=== PATIENT | female | born 1965 | race American Indian/Alaskan Native ===

== ENCOUNTER 2025-07-09 17:22 | Observation (INO) ==
[2025-07-09] MEDS ORDERED: IOPAMIDOL 100 ML BOTTLE IV ONE (17:23)
[2025-07-09 18:13] LABS: Basophils # (Auto) 0.02 K/mcL (0.00-0.30); Basophils % (Auto) 0.3 % (0.0-2.0); Eosinophils # (Auto) 0.05 K/mcL (0.00-0.70); Eosinophils % (Auto) 0.8 % (0.0-7.0); Hematocrit 44.5 % (34.1-44.9); Hemoglobin 14.8 g/dL (11.2-15.7); Lymphocytes # (Auto) 2.75 K/mcL (1.50-4.80); Lymphocytes % (Auto) 44.1 % (15.5-49.0); Mean Corpuscular HGB Conc 33.3 g/dL (31.0-36.0); Monocytes # (Auto) 0.46 K/mcL (0.10-0.90); Monocytes % (Auto) 7.4 % (1.0-12.0); Neutrophils % (Auto) 47.4 % (38.0-78.0); Platelet Count 275 K/mcL (140-440); RBC 4.95 M/mcL (3.59-5.38); WBC 6.2 K/mcL (4.5-11.0)
[2025-07-09 18:34] LABS: ALT/SGPT 37 U/L (<40); AST/SGOT 26 U/L (<32); Albumin 4.1 gm/dL (3.2-5.2); Albumin/Globulin Ratio 1.4 (1.0-2.3); Alkaline Phosphatase 70 U/L (39-117); Anion Gap 12.0 (8.0-16.0); Bilirubin,Total 0.2 mg/dL (0.1-1.0); Blood Urea Nitrogen 9 mg/dL (8-23); Calcium 8.6 mg/dL (8.6-10.4); Carbon Dioxide 27 mmol/L (22-30); Chloride 103 mmol/L (96-108); Globulin 3.0 gm/dL (2.2-3.7); Glucose 121 mg/dL (70-105); Potassium 3.8 mmol/L (3.3-5.1); Sodium 142 mmol/L (133-145)
[2025-07-09 18:42] LABS: INR 0.9 (0.9-1.1); Prothrombin Time 13.2 sec (11.9-14.5)
[2025-07-09 18:43] LABS: Partial Thromboplastin Time 27.5 sec (20.0-37.0)
[2025-07-09] MEDS: ASPIRIN 81 MG TAB.CHEW CHEWED ONE (19:11)
[2025-07-09] MEDS: CLOPIDOGREL 75 MG TABLET PO ONE (19:39)
[2025-07-09 20:29] LABS: Bacteria,Urine Few /hpf (0); Bilirubin,Urine NEGATIVE (Negative); Color,Urine LT. YELLOW; Glucose,Urine (UA) NEGATIVE (Negative); Ketones,Urine NEGATIVE (Negative); Leukocyte Esterase,Urine NEGATIVE /uL (Negative); PH,Urine 7.5 (5.0-9.0); Protein,Urine NEGATIVE (Negative); Specific Gravity,Urine 1.010 (1.000-1.035); Urobilinogen,Urine 0.2 mg/dL
[2025-07-09] MEDS: ATORVASTATIN 40 MG TABLET PO SCH (21:02)
[2025-07-09 21:13] LABS: Thyroid Stimulating Hormone 1.84 uIU/mL (0.27-5.01)
[2025-07-10] MEDS ORDERED: POLYETHYLENE GLYCOL 3350 17 GM PACKET PO PRN (00:31)
[2025-07-10] MEDS ORDERED: ONDANSETRON 4 MG/2 ML VIAL IV PRN (00:31)
[2025-07-10] MEDS ORDERED: ACETAMINOPHEN 325 MG TABLET PO PRN (00:31)
[2025-07-10] MEDS ORDERED: MELATONIN 3 MG TABLET PO PRN (00:31)
[2025-07-10] MEDS: UMECLIDINIUM VILANTEROL INHALATION SCH (00:58)
[2025-07-10] MEDS: 0.9 % SODIUM CHLORIDE 10 ML SYRINGE IV SCH (03:57)
[2025-07-10 06:44] LABS: Phosphorous 3.4 mg/dL (2.5-4.5)
[2025-07-10 06:45] LABS: HDL Cholesterol 41 mg/dL (>40); LDL Cholesterol,Calculated 116 mg/dL (<100); Triglycerides 157 mg/dL (<150)
[2025-07-10 06:47] LABS: Anion Gap 11.0 (8.0-16.0); Blood Urea Nitrogen 9 mg/dL (8-23); Calcium 8.5 mg/dL (8.6-10.4); Carbon Dioxide 26 mmol/L (22-30); Chloride 108 mmol/L (96-108); Glucose 117 mg/dL (70-105); Potassium 4.1 mmol/L (3.3-5.1); Sodium 145 mmol/L (133-145)
[2025-07-10 07:03] LABS: Basophils # (Auto) 0.01 K/mcL (0.00-0.30); Basophils % (Auto) 0.2 % (0.0-2.0); Eosinophils # (Auto) 0.05 K/mcL (0.00-0.70); Eosinophils % (Auto) 0.8 % (0.0-7.0); Hematocrit 42.2 % (34.1-44.9); Hemoglobin 14.2 g/dL (11.2-15.7); Lymphocytes # (Auto) 2.19 K/mcL (1.50-4.80); Lymphocytes % (Auto) 36.4 % (15.5-49.0); Mean Corpuscular HGB Conc 33.6 g/dL (31.0-36.0); Monocytes # (Auto) 0.42 K/mcL (0.10-0.90); Monocytes % (Auto) 7.0 % (1.0-12.0); Neutrophils % (Auto) 55.4 % (38.0-78.0); Platelet Count 258 K/mcL (140-440); RBC 4.69 M/mcL (3.59-5.38); WBC 6.0 K/mcL (4.5-11.0)
[2025-07-10] MEDS: OMEPRAZOLE 20 MG CAPSULE PO SCH (08:01)
[2025-07-10] MEDS: CLOPIDOGREL 75 MG TABLET PO SCH (11:11)
[2025-07-10 14:31] VITALS: O2SAT 94
[2025-07-10] MEDS: LORATADINE 10 MG TABLET PO SCH (15:42)
[2025-07-10] MEDS: ASPIRIN 81 MG TAB.CHEW CHEWED SCH (15:42)
[2025-07-10] MEDS: HEPARIN 5,000 UNIT/ML VIAL SQ SCH (15:43)
[2025-07-10] MEDS: FLUTICASONE PROPIONATE SPRAY.NAS NS SCH (15:43)
[2025-07-10] MEDS: DOCUSATE SODIUM 100 MG CAPSULE PO SCH (15:43)
[2025-07-10 16:54] VITALS: TEMP 98.2
[2025-07-10] MEDS ORDERED: Olopatadine 0.1 % drops OU SCH (21:00)
[2025-07-10] MEDS ORDERED: SENNOSIDES 1 TABLET PO SCH (21:00)
[2025-07-10] MEDS ORDERED: MONTELUKAST 10 MG TABLET PO SCH (21:00)
[2025-07-11] MEDS ORDERED: Umeclidinium-Vilanterol [Anoro Ellipta] 62.5-25 mcg Inhaler INH SCH (09:00)
== END 2025-07-10 16:40 | disposition home or self-care (01) ==
LOC: MEDSUR 17:22 → ED 17:22 → MEDSUR 07-10 00:27
PROVIDERS: ADMIT Student in an Organized Health Care Education/Training Program; ATTEND Student in an Organized Health Care Education/Training Program